=== PATIENT | female | born 1975 | race Caucasian/White ===

== ENCOUNTER 2018-09-04 11:31 | Emergency (ER) | payer SELFPAY ==
[~2018-09-04] VITALS: Ht 157.5 cm; Wt 78.0 kg
[2018-09-04 11:35] VITALS: BP 134/64
--- NOTE | 2018-09-04 11:44 | NUR ---
PT AMBULATED TO ER BED 2
--- NOTE | 2018-09-04 11:45 | NUR ---
PT BIB SELF, WITH C/O BILAT BACK DISCOMFORT/"BUMPS", 8/10 WHEN PALPATED, X3 DAYS. ER TO SEE THE PT. HX: NONE RX: NONE
[2018-09-04 12:30] VITALS: BP 134/64
== END 2018-09-04 12:31 | disposition home or self-care (01) ==
LOC: MED 11:31
DX: N64.4 Mastodynia (principal)
CPT/HCPCS: 99283